=== PATIENT | male | born 1990 | race African-American/Black ===

== ENCOUNTER 2017-08-02 12:22 | Emergency (ER) | payer SELFPAY | END 2017-08-02 12:57 | disposition home or self-care (01) | LOC: ER 12:22 | DX: S46.911A Strain of unspecified muscle, fascia and tendon at shoulder and upper arm level, right arm, initial encounter (principal); F17.200 Nicotine dependence, unspecified, uncomplicated; X58.XXXA Exposure to other specified factors, initial encounter; Y93.89 Activity, other specified; Y92.69 Other specified industrial and construction area as the place of occurrence of the external cause; Y99.8 Other external cause status | CPT/HCPCS: 73030; 99284 ==